=== PATIENT | female | born 1985 | race African-American/Black ===

== ENCOUNTER 2023-01-05 00:06 | Emergency (ER) | payer OTHER ==
[2023-01-05 00:24] VITALS: BP 144/101; PULSE 82; RESP 18; TEMP 98.3; BMI 33.2
[2023-01-05] MEDS ORDERED: ACETAMINOPHEN 500 MG TABLET (FP) PO ONE (01:01)
[2023-01-05] MEDS ORDERED: KETOROLAC TROMETHAMINE 15 MG/ML VIAL IM ONE (01:01)
[2023-01-05] MEDS ORDERED: LIDOCAINE 5% TOPICAL PATCH TP ONE (01:02)
[2023-01-05] MEDS ORDERED: METHOCARBAMOL 500 MG TABLET PO ONE (01:02)
[2023-01-05] MEDS ORDERED: METHOCARBAMOL 500 MG TABLET ONE (01:12)
[2023-01-05] MEDS ORDERED: ACETAMINOPHEN 325 MG TABLET (FP) ONE (01:12)
[2023-01-05] MEDS ORDERED: LIDOCAINE 5% TOPICAL PATCH ONE (01:13)
[2023-01-05] MEDS ORDERED: KETOROLAC TROMETHAMINE 15 MG/ML VIAL ONE (01:13)
[2023-01-05 01:49] LABS: BASO % 0.4 % (0-2.0); EOS % 1.5 % (0-4.5); HEMOGLOBIN 11.8 GM/dL (10.7-15.3); LYMPH % 43.5 % (8-40); MCHC 33.6 g/dl (32.0-36.0); MEAN CELL VOLUME 89.3 fl (80-96); MEAN PLT VOLUME 7.8 fl (7.5-11.1); MONO % 9.1 % (3.8-10.2); NEUT % 45.5 % (42.8-82.8); PLATELET COUNT 338 10^3/uL (134-434); RBC 3.92 M/mm3 (3.60-5.2); RDW 12.8 % (11.6-15.6); WHITE BLOOD COUNT 7.7 K/mm3 (4.0-10.0)
[2023-01-05 02:08] LABS: ALBUMIN 3.8 g/dl (3.4-5.0); BLOOD UREA NITROGEN 17.7 mg/dL (7-18)
[2023-01-05 02:12] LABS: CREATININE 0.9 mg/dL (0.55-1.3)
[2023-01-05 02:13] LABS: BILIRUBIN,TOTAL 0.4 mg/dL (0.2-1); TOT PROT 7.8 g/dl (6.4-8.2)
[2023-01-05] MEDS ORDERED: LIDOCAINE PATCH REMOVAL MC SCH (22:00)
== END 2023-01-05 02:37 | disposition home or self-care (01) ==
LOC: JER 00:06
PROC: 3E023GC Introduction of Other Therapeutic Substance into Muscle, Percutaneous Approach (ICD-10-PCS; principal; 2023-01-05)
DX: K80.20 Calculus of gallbladder without cholecystitis without obstruction (principal); M54.6 Pain in thoracic spine
CPT/HCPCS: 36415; 76705-TC; 80053; 85025; 99284-25

== ENCOUNTER 2023-01-08 16:14 | Emergency (ER) | payer OTHER ==
[2023-01-08 16:30] VITALS: BP 144/85; PULSE 98; RESP 18; TEMP 98.9; BMI 33.6
[2023-01-08] MEDS ORDERED: IBUPROFEN 600 MG TABLET (FP) PO ONE ×2 (17:50→17:54)
[2023-01-08] MEDS ORDERED: LIDOCAINE 5% TOPICAL PATCH TP ONE (17:50)
[2023-01-08] MEDS ORDERED: diazePAM 5 MG TABLET PO ONE (17:50)
[2023-01-08] MEDS ORDERED: LIDOCAINE 5% TOPICAL PATCH ONE (17:54)
[2023-01-08] MEDS ORDERED: diazePAM 5 MG TABLET ONE (17:54)
[2023-01-09] MEDS ORDERED: LIDOCAINE PATCH REMOVAL MC SCH (06:00)
== END 2023-01-08 18:54 | disposition home or self-care (01) ==
LOC: JERFT 16:14
DX: M62.830 Muscle spasm of back (principal)
CPT/HCPCS: 99283-25

== ENCOUNTER 2024-03-03 08:52 | Observation (INO) | payer OTHER ==
[2024-03-03 09:54] LABS: BASO % 0.4 % (0-2.0); EOS % 0.5 % (0-4.5); HEMATOCRIT 39.5 % (32.4-45.2); HEMOGLOBIN 13.4 GM/dL (10.7-15.3); LYMPH % 27.9 % (8-40); MCH 30.5 pg (25.7-33.7); MCHC 33.8 g/dl (32.0-36.0); MEAN CELL VOLUME 90.2 fl (80-96); MEAN PLT VOLUME 8.8 fl (7.5-11.1); MONO % 6.3 % (3.8-10.2); NEUT % 64.9 % (42.8-82.8); PLATELET COUNT 378 10^3/uL (134-434); RBC 4.38 M/mm3 (3.60-5.2); RDW 13.3 % (11.6-15.6); WHITE BLOOD COUNT 7.3 K/mm3 (4.0-10.0)
[2024-03-03] MEDS: SODIUM CHLORIDE 1,000 ML IV SCH (09:55)
[2024-03-03 10:07] LABS: VENOUS BASE EXCESS -2.1 mmol/L (-2-2); VENOUS PH 7.398 (7.310-7.410)
[2024-03-03 10:10] LABS: CHLORIDE 102 mmol/L (98-107); SODIUM 131 mmol/L (136-145)
[2024-03-03 10:11] LABS: CALCIUM 9.6 mg/dL (8.5-10.1)
[2024-03-03 10:12] LABS: ALBUMIN 4.1 g/dl (3.4-5.0); ANION GAP 6 mmol/L (4-13); CO2 23 mmol/L (21-32)
[2024-03-03 10:13] LABS: BLOOD UREA NITROGEN 11.7 mg/dL (7-18); GLUCOSE,RANDOM 330 mg/dL (74-106)
[2024-03-03 10:15] LABS: CREATININE 0.8 mg/dL (0.55-1.3); SGPT/ALT 21 U/L (13-61)
[2024-03-03 10:16] LABS: CHOLESTEROL 276 mg/dL (50-200); SGOT/AST 16 U/L (15-37)
[2024-03-03 10:17] LABS: TOT PROT 8.2 g/dl (6.4-8.2)
[2024-03-03 10:18] LABS: BILIRUBIN,TOTAL 0.6 mg/dL (0.2-1); HDL CHOLESTEROL 62 mg/dL (40-60); LDL CHOLESTEROL (ONLY SJRH) 184 mg/dL (5-100)
[2024-03-03 10:19] LABS: ALK PHOS 100 U/L (45-117)
[2024-03-03 10:41] LABS: PH,URINE 5.5 (5.0-8.0); URINE APPEARANCE CLEAR; URINE BILIRUBIN NEGATIVE (NEGATIVE); URINE COLOR YELLOW; URINE GLUCOSE (UA) 3+ (NEGATIVE); URINE KETONE NEGATIVE (NEGATIVE)
[2024-03-03 10:42] LABS: URINE LEUK ESTERASE NEGATIVE (NEGATIVE); URINE NITRITE NEGATIVE (NEGATIVE); URINE PROTEIN NEGATIVE (NEGATIVE); URINE UROBILINOGEN 0.2 mg/dL (0.2-1.0)
[2024-03-03] MEDS: SODIUM CHLORIDE 0.45% 1,000 ML IV SCH (15:34)
[2024-03-03] MEDS ORDERED: metFORMIN HCL 500 MG TABLET (FP) ONE (16:33)
[2024-03-03] MEDS: metFORMIN HCL 500 MG TABLET (FP) PO SCH (16:34)
[2024-03-03] MEDS: INSULIN ASPART SLIDING SCALE (NOVOLOG) 1 VIAL SQ SCH (16:38)
[2024-03-03] MEDS ORDERED: INSULIN (NOVOLOG) ASPART 100 UNITS/ML 10ML VIAL ONE (16:39)
[2024-03-03] MEDS: ATORVASTATIN CA 20 MG TABLET (FP) PO SCH (22:44)
[2024-03-04] MEDS: ASPIRIN 81 MG CHEWABLE TABLETS PO ONE (00:07)
[2024-03-04] MEDS: CLOPIDOGREL BISULFATE 75 MG TABLET (FP) PO ONE (00:07)
[2024-03-04] MEDS: INSULIN (LEVEMIR) 100 UNITS/ML UNITS SQ SCH (06:24)
[2024-03-04 08:09] LABS: BASO % 0.6 % (0-2.0); EOS % 0.8 % (0-4.5); HEMATOCRIT 35.6 % (32.4-45.2); LYMPH % 35.1 % (8-40); MCH 30.4 pg (25.7-33.7); MCHC 33.5 g/dl (32.0-36.0); MEAN CELL VOLUME 90.6 fl (80-96); MEAN PLT VOLUME 8.4 fl (7.5-11.1); MONO % 6.8 % (3.8-10.2); NEUT % 56.7 % (42.8-82.8); PLATELET COUNT 320 10^3/uL (134-434); RBC 3.93 M/mm3 (3.60-5.2); RDW 13.3 % (11.6-15.6); WHITE BLOOD COUNT 7.9 K/mm3 (4.0-10.0)
[2024-03-04 08:30] LABS: POTASSIUM 3.8 mmol/L (3.5-5.1)
[2024-03-04 08:45] LABS: ALBUMIN 3.4 g/dl (3.4-5.0); BLOOD UREA NITROGEN 11.4 mg/dL (7-18)
[2024-03-04 08:47] LABS: CREATININE 0.7 mg/dL (0.55-1.3)
[2024-03-04 08:51] LABS: BILIRUBIN,TOTAL 0.7 mg/dL (0.2-1)
[2024-03-04] MEDS: ASPIRIN 81 MG CHEWABLE TABLETS PO SCH (11:10)
[2024-03-04] MEDS: CLOPIDOGREL BISULFATE 75 MG TABLET (FP) PO SCH (11:14)
[2024-03-04 15:16] VITALS: BMI 33.7
[2024-03-04] MEDS ORDERED: INSULIN (NOVOLOG) ASPART 100 UNITS/ML 10ML VIAL ONE (21:28)
[2024-03-05 07:23] LABS: BASO % 0.5 % (0-2.0); EOS % 1.2 % (0-4.5); HEMATOCRIT 34.2 % (32.4-45.2); HEMOGLOBIN 11.8 GM/dL (10.7-15.3); LYMPH % 38.4 % (8-40); MCH 31.2 pg (25.7-33.7); MCHC 34.4 g/dl (32.0-36.0); MEAN CELL VOLUME 90.5 fl (80-96); MEAN PLT VOLUME 8.1 fl (7.5-11.1); MONO % 7.5 % (3.8-10.2); NEUT % 52.4 % (42.8-82.8); PLATELET COUNT 307 10^3/uL (134-434); RBC 3.78 M/mm3 (3.60-5.2); RDW 13.2 % (11.6-15.6); WHITE BLOOD COUNT 7.1 K/mm3 (4.0-10.0)
[2024-03-05 07:48] LABS: ALBUMIN 3.2 g/dl (3.4-5.0); BLOOD UREA NITROGEN 9.7 mg/dL (7-18)
[2024-03-05 07:51] LABS: CREATININE 0.7 mg/dL (0.55-1.3)
[2024-03-05 07:52] LABS: BILIRUBIN,TOTAL 0.8 mg/dL (0.2-1)
[2024-03-05 07:53] LABS: TOT PROT 6.5 g/dl (6.4-8.2)
[2024-03-05] MEDS ORDERED: ATORVASTATIN CA 40 MG TABLET (FP) PO SCH (12:27)
[2024-03-05] MEDS: EMPAGLIFLOZIN (JARDIANCE) 25 MG TABLET PO SCH (15:03)
[2024-03-05] MEDS: ATORVASTATIN CA 40 MG TABLET (FP) PO SCH (21:22)
[2024-03-05] MEDS: HEPARIN NA (PORCINE) 5,000 UNITS/ML 1ML VIAL SQ SCH (21:22)
[2024-03-06 09:27] VITALS: TEMP 98.1
[2024-03-06] MEDS ORDERED: LISINOPRIL 5 MG TABLET PO SCH (11:00)
[2024-03-06] MEDS: LISINOPRIL 5 MG TABLET PO SCH (11:41)
[2024-03-06 15:54] VITALS: BP 139/81; PULSE 101; RESP 18
[2024-03-07 20:08] LABS: DRVVT - 36.1 sec (0.0-47.0)
== END 2024-03-06 17:51 | disposition home or self-care (01) ==
LOC: JER 08:52 → UNDOADMOB 10:35 → JERBED 10:35 → INTOOBSV 14:46 → OBSVTOIN 14:46 → JERBED 15:02 → J4W 16:57
PROVIDERS: ADMIT Internal Medicine; ATTEND Internal Medicine
PROC: 3E023GC Introduction of Other Therapeutic Substance into Muscle, Percutaneous Approach (ICD-10-PCS; principal; 2024-03-03)
PROC: 3E0337Z Introduction of Electrolytic and Water Balance Substance into Peripheral Vein, Percutaneous Approach (ICD-10-PCS; 2024-03-03)
DX: I61.0 Nontraumatic intracerebral hemorrhage in hemisphere, subcortical (principal); R20.2 Paresthesia of skin; E11.9 Type 2 diabetes mellitus without complications; E78.5 Hyperlipidemia, unspecified; I10 Essential (primary) hypertension
CPT/HCPCS: 36415; 70450-TC; 70496-TC; 70498-TC; 70551-TC; 76775-TC; 76856-TC; 80053; 80061; 81003; 81240; 81241; 82010; 82550; 82803; 82962; 83036; 84484; 85025; 85300; 85303; 85613; 85732; 86850; 86900; 86901; 93005; 93010; 93306-TC; 93880-TC; 96360; 96372; 97116-GP; 97161-GP; 99285-25; G0378; J1644